=== PATIENT | male | born 1955 | race African-American/Black ===

== ENCOUNTER 2016-04-28 14:17 | Outpatient (CLI) | payer OTHER ==
[2015-10-01 10:43] VITALS: BP 102/97
== END 2016-04-28 14:18 ==
LOC: LAB 14:17
PROVIDERS: ATTEND Family Medicine
DX: E11.9 Type 2 diabetes mellitus without complications (principal)
CPT/HCPCS: 36415; 83036

== ENCOUNTER 2016-05-01 14:11 | Outpatient (CLI) | payer OTHER ==
[2015-10-01 10:43] VITALS: BP 102/97
== END 2016-05-01 14:12 ==
LOC: POD 14:11
PROVIDERS: ATTEND Podiatrist
DX: B35.1 Tinea unguium (principal); M79.674 Pain in right toe(s); M79.675 Pain in left toe(s)
CPT/HCPCS: 11721; 99213

== ENCOUNTER 2016-07-17 13:35 | Outpatient (CLI) | payer OTHER ==
[2015-10-01 10:43] VITALS: BP 102/97
== END 2016-07-17 13:36 ==
LOC: POD 13:35
PROVIDERS: ATTEND Podiatrist
DX: B35.1 Tinea unguium (principal); M79.674 Pain in right toe(s); M79.675 Pain in left toe(s)
CPT/HCPCS: 11721; G0463

== ENCOUNTER 2016-09-01 09:10 | Outpatient (CLI) | payer OTHER ==
[2015-10-01 10:43] VITALS: BP 102/97
[2016-09-01 10:09] LABS: eGFR (African) > 60; eGFR (Non-African) > 60
== END 2016-09-01 09:11 ==
LOC: LAB 09:10
PROVIDERS: ATTEND Family Medicine
DX: E11.9 Type 2 diabetes mellitus without complications (principal)
CPT/HCPCS: 36415; 80053; 80061; 83036

== ENCOUNTER 2016-12-08 08:49 | Outpatient (CLI) | payer OTHER ==
[2015-10-01 10:43] VITALS: BP 102/97
== END 2016-12-08 08:50 ==
LOC: LAB 08:49
PROVIDERS: ATTEND Family Medicine
DX: E11.9 Type 2 diabetes mellitus without complications (principal)
CPT/HCPCS: 36415; 83036

== ENCOUNTER 2016-12-11 13:39 | Outpatient (CLI) | payer OTHER ==
[2015-10-01 10:43] VITALS: BP 102/97
== END 2016-12-11 13:40 ==
LOC: POD 13:39
PROVIDERS: ATTEND Podiatrist
DX: E11.42 Type 2 diabetes mellitus with diabetic polyneuropathy (principal); B35.1 Tinea unguium; M79.674 Pain in right toe(s); M79.675 Pain in left toe(s)
CPT/HCPCS: 11721; G0463

== ENCOUNTER 2017-04-16 12:25 | Outpatient (CLI) | payer OTHER ==
[2015-10-01 10:43] VITALS: BP 102/97
== END 2017-04-16 12:26 ==
LOC: POD 12:25
PROVIDERS: ATTEND Podiatrist
DX: E11.42 Type 2 diabetes mellitus with diabetic polyneuropathy (principal); B35.1 Tinea unguium; M79.674 Pain in right toe(s); M79.675 Pain in left toe(s)
CPT/HCPCS: 11721; G0463

== ENCOUNTER 2017-05-13 08:47 | Outpatient (CLI) | payer OTHER ==
[2015-10-01 10:43] VITALS: BP 102/97
--- NOTE | 2017-05-13 09:24 | Diagnostic Imaging Report ---
NERY HOFFMAN [facility] [address] [facility] [address] [place] [address]. [id number] Report Submission Date: May 13, 2017 9:21:16 AM SNORKELLING INSTRUCTOR Patient Study Name: NEHA GUERRA Date: May 13, 2017 9:03:42 AM SNORKELLING INSTRUCTOR Modality Type: DX Gender: M Description: SPINE : 57 Institution: [facility] Physician: NERY HOFFMAN 3 views of the lumbar spine History: L-SPINE, LEFT SIDED LOW BACK PAIN FOR ABOUT A MONTH, NO KNOWN INJURY No similar comparison studies. No evidence of acute fracture or dislocation of the lumbar spine Multilevel degenerative changes are seen, most pronounced at L5-S1. Facet arthropathy is seen from L4 to S1. There is minimal loss of height of L5 vertebral body. Intervertebral disc space decreased at L4 to S1, worst at L5- S1. Osteophytes are present Impression: 1. No evidence of acute fracture or dislocation. Multilevel degenerative changes 2. Minimal loss of height of L5 vertebral body. Narrowed intervertebral disc space with facet arthropathy from L4 to S1, findings are most severe at L5-S1. Electronically signed on May 13, 2017 9:21:16 AM SNORKELLING INSTRUCTOR by: Angelita DOMINGUEZ
== END 2017-05-13 08:50 ==
LOC: LAB 08:47
PROVIDERS: ATTEND Family Medicine
DX: M54.42 Lumbago with sciatica, left side (principal); E11.9 Type 2 diabetes mellitus without complications
CPT/HCPCS: 36415; 72100; 82043; 83036

== ENCOUNTER 2017-06-08 12:11 | Outpatient (CLI) | payer OTHER ==
[2015-10-01 10:43] VITALS: BP 102/97
--- NOTE | 2017-06-14 15:00 | HISTORY AND PHYSICAL REPORT ---
REFERRING PHYSICIAN: Dr. Sindi Dwyer Dear. Dr. Dwyer: HISTORY OF PRESENT ILLNESS: I had the opportunity of seeing Aleks Hernandes today as an outpatient at [facility]. Mr. Hernandes is a very nice 62-year-old white male with a 2 to 3 month history of left-sided low back pain radiating across the back and lateral hip pain, posterior lateral thigh. He denies accident or injury. He says the pain is worse with walking, lying down, sitting, twisting, and getting up out of a chair. He has start-up symptoms. He says that lying down can make it better but it really has not been better. He has an x-ray image but no recent studies. He has not realized physical therapy, chiropractic manipulation, TENS unit, acupuncture, or massage therapy. He feels like his left leg is weaker than his right. He denies right-sided leg pain. He denies symptoms of neurogenic claudication. He denies incontinence of bowel or bladder. He rates the pain as severe as 9 over 10 on the visual analog scale and never better than 4 over 10 on the visual analog scale and getting worse. He has diabetes mellitus type 2. His blood sugar today is 149. PAST MEDICAL HISTORY: 1. History of vision problems. 2. Nose or sinus problems. 3. Asthma or bronchitis. 4. Insulin-dependent diabetes. PAST SURGICAL HISTORY: 1. Right total hip replacement in 2006. 2. Lung biopsy. CURRENT DAILY MEDICATIONS: 1. Metformin 500 mg b.i.d. 2. Glipizide 10 mg b.i.d. 3. Flomax 0.4 mg daily. 4. Relafen 750 mg b.i.d. p.r.n. 5. Multivitamin daily. 6. Insulin per sliding scale daily. ALLERGIES: He has no known drug allergies. SOCIAL HISTORY: He is a current [id number]-day smoker. Drinks alcohol approximately 10 times per year. Denies recreational drugs. He is . He has no children. He completed the 12th grade. He is not currently employed. His previous occupation was a social worker school/assembly. He is disabled for an unknown reason. FAMILY HISTORY: Father with cancer. Sister with cancer. Mother with heart disease. REVIEW OF SYSTEMS: In the last month or so, he reports a sinus infection, cough or cold. Pain is worsened with lying down, standing, bending, sitting, walking, twisting, getting up from a chair. Nothing improves his pain. PHYSICAL EXAMINATION: Vital Signs: BP: 130/78, P: 60, R: 20, oxygen saturation is 98% on room air. General: The patient is well nourished, well developed, and in no apparent distress. Awake, alert, and oriented. HEENT: Pupils are equal, round, and reactive to light and accommodation. Extraocular movements intact. No facial droop. Neck: There is full range of motion of the cervical spine. No evidence of adenopathy. Thyroid is nontender, not enlarged. Carotids are without bruits. Chest: Clear to auscultation bilaterally. Normal chest excursion. Heart: Regular rate and rhythm without murmur. Abdomen: Benign. Normoactive bowel sounds. Motor/sensory: Intact in the upper and lower extremities. Moves all extremities freely. Extremities: Positive straight leg raise on the left. Negative straight leg raise on the right. Strength is 5/5 and equal in his lower extremities. Dorsiflexion and plantar flexion of the feet are intact. There is negative PANCHITO. Negative femoral nerve stretch. ASSESSMENT: 1. Left-sided low back pain with sciatica. 2. Left radiculitis without MRI imaging. PLAN: At this point, we will need to get him approved for treatment with a lumbar epidural steroid injection. I am going to start him on tramadol and Lyrica and follow him up next month. He is in agreement and we will get this gentleman taken care of in the near future. Dr. Dwyer, thank you very much for allowing us to take part in the care of this nice gentleman. I appreciate the opportunity to take part in the care of your patients. cc: Dr. Sindi DOMINGUEZ
== END 2017-06-08 12:12 ==
LOC: OUT 12:11
PROVIDERS: ATTEND Anesthesiology Pain Medicine
DX: M54.40 Lumbago with sciatica, unspecified side (principal); M54.16 Radiculopathy, lumbar region
CPT/HCPCS: 99214; G0463

== ENCOUNTER 2017-06-11 13:08 | Outpatient (CLI) | payer OTHER ==
[2015-10-01 10:43] VITALS: BP 102/97
== END 2017-06-11 13:10 ==
LOC: POD 13:08
PROVIDERS: ATTEND Podiatrist
DX: E11.42 Type 2 diabetes mellitus with diabetic polyneuropathy (principal); B35.1 Tinea unguium; M79.674 Pain in right toe(s); M79.675 Pain in left toe(s)
CPT/HCPCS: 11721; G0463

== ENCOUNTER 2017-07-06 09:27 | Outpatient (CLI) | payer OTHER ==
[2015-10-01 10:43] VITALS: BP 102/97
--- NOTE | 2017-07-08 09:06 | LESI WITH FLUORO ---
SUBJECTIVE: Mr. Hernandes follows up with me today for low back pain and left lower extremity radicular pain for a lumbar epidural steroid injection under fluoroscopy for radiculitis. His MRI is significant for small disc protrusions at L1-L2, L2-L3 , L3-L4, L4-L5, and L5-S1 with a slight anterolisthesis at L4-L5 and a great deal of posterior facet hypertrophy and osteophytes at each level particularly at L1-L2 through L4-L5. There is notable lateral recess stenosis at L4-L5 as well, and otherwise, mild stenotic changes at L2-L3 and L3-L4. L5-S1 appears fairly well preserved. 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 His MRI report done at [facility] does not address his spondylolytic changes or notable lateral recess stenosis. OPERATIVE PROCEDURE: Left L4-L5 epidural steroid injection with fluoroscopic guidance. DESCRIPTION OF PROCEDURE: The risks and benefits were discussed with the patient including the risk of infection, bleeding, nerve injury, and headache, as well as the risks of steroid exposure causing hyperglycemia, hypertension, osteoporosis, or increased infectious risks. The patient understood these risks and agreed to proceed. Consent was obtained prior to the procedure. The patient was placed in the prone position on the fluoroscopy table with a pillow underneath the abdomen to afford anterior flexion of the lumbar spine. The low back was cleaned and a sterile drape was applied. An 18-gauge thin wall Tuohy epidural needle was advanced with normal saline loss of resistance technique and direct fluoroscopic guidance with a left paramedian approach at the L4-L5 level. On obtaining loss of resistance to normal saline, it was verified that there was no aspiration of CSF or blood. Furthermore, the needle tip location was verified with lateral and AP fluoroscopic views. Omnipaque 240 myelogram dye were injected through the epidural needle. The distribution of the dye was noted to be within the desired distribution within the lumbar epidural space. The medication was injected into the epidural space. The stylet was replaced in the needle and the needle was removed from the back. The patient tolerated the procedure well. The back was cleaned and a bandage was applied over the injection site. The patient was monitored for 20 minutes following the procedure. during this time the vital signs remained stable and the patient experienced no adverse sequelae. The patient was discharged in good condition. ASSESSMENT: 1. Lumbar stenosis most pronounced at L4-L5 and otherwise, L2-L3 and L3-L4. 2. Multi-level lumbar spondylosis. PLAN: Left L4-L5 epidural steroid injection with fluoroscopic guidance today. FOLLOWUP: We will follow this nice gentleman up sometime next month. Return to clinic if problems develop or worsen. cc: Dr. Sindi DOMINGUEZ
== END 2017-07-06 09:30 ==
LOC: OUT 09:27
PROVIDERS: ATTEND Anesthesiology Pain Medicine
DX: M47.896 Other spondylosis, lumbar region (principal); M48.07 Spinal stenosis, lumbosacral region
CPT/HCPCS: J3301; Q9966; 62323; 99213; G0463

== ENCOUNTER 2017-08-03 10:30 | Outpatient (CLI) | payer OTHER ==
[2015-10-01 10:43] VITALS: BP 102/97
[2017-08-03] MEDS ORDERED: SALINE FLUSH 10 ML DISP.SYRIN IVF ONE (11:00)
[2017-08-03] MEDS ORDERED: Lidocaine 1% 5ml(IM or SUTURE)(PAIN CLINIC) ONE (11:00)
[2017-08-03] MEDS ORDERED: TRIAMCINOLONE ACETONID 40MG/ML VIAL ONE (11:00)
--- NOTE | 2017-08-04 09:09 | LESI WITH FLUORO ---
SUBJECTIVE: I had the opportunity of following up with Aleks Hernandes. This is a delightful 62-year-old male with a history of back pain and neurogenic claudication and MRI findings consistent with lumbar spinal stenosis and lumbar spondylosis. He said he got a great deal of improvement, almost 100% relief, following lumbar epidural steroid injection last month. He said he is getting some recurrent symptoms. He was at a prolonged graduation sitting on benches. He said the symptoms are returning in his back and he is here today for possible repeat injection. I have discussed the findings of both stenosis and spondylosis today and that I could repeat a lumbar epidural steroid injection and have him follow up with me on an as needed basis. He is in agreement today. I am going to proceed with a left L4-L5 epidural steroid injection under fluoroscopic guidance. OPERATIVE PROCEDURE: Left L4-L5 epidural steroid injection with fluoroscopic guidance. DESCRIPTION OF PROCEDURE: The risks and benefits were discussed with the patient including the risk of infection, bleeding, nerve injury, and headache, as well as the risks of steroid exposure causing hyperglycemia, hypertension, osteoporosis, or increased infectious risks. The patient understood these risks and agreed to proceed. Consent was obtained prior to the procedure. The patient was placed in the prone position on the fluoroscopy table with a pillow underneath the abdomen to afford anterior flexion of the lumbar spine. The low back was cleaned with and a sterile drape was applied. An 18-gauge thin wall Tuohy epidural needle was advanced with normal saline loss of resistance technique and direct fluoroscopic guidance with a left paramedian approach at the L4-L5 level. On obtaining loss of resistance to normal saline, it was verified that there was no aspiration of CSF or blood. Furthermore, the needle tip location was verified with lateral and AP fluoroscopic views. Omnipaque 240 myelogram dye was injected through the epidural needle. The distribution of the dye was noted to be within the desired distribution within the lumbar epidural space. The medication was injected into the epidural space. The stylet was replaced in the needle and the needle was removed from the back. The patient tolerated the procedure well. The back was cleaned and a bandage was applied over the injection site. The patient was monitored for 20 minutes following the procedure. during this time the vital signs remained stable and the patient experienced no adverse sequelae. The patient was discharged in good condition. ASSESSMENT: Lumbar spinal stenosis with neurogenic claudication. PLAN: Left L4-L5 epidural steroid injection today. FOLLOWUP: Return to clinic if problems develop or worsen. cc: Dr. Sindi DOMINGUEZ
== END 2017-08-03 10:32 ==
LOC: OUT 10:30
PROVIDERS: ATTEND Anesthesiology Pain Medicine
DX: M48.062 Spinal stenosis, lumbar region with neurogenic claudication (principal)
CPT/HCPCS: 62323; 99213; G0463; J3301; A4550; Q9966

== ENCOUNTER 2017-10-05 12:32 | Outpatient (CLI) | payer OTHER ==
[2015-10-01 10:43] VITALS: BP 102/97
== END 2017-10-05 12:37 ==
LOC: POD 12:32
PROVIDERS: ATTEND Podiatrist
DX: E11.42 Type 2 diabetes mellitus with diabetic polyneuropathy (principal); B35.1 Tinea unguium; M79.674 Pain in right toe(s); M79.675 Pain in left toe(s)
CPT/HCPCS: 11721; G0463

== ENCOUNTER 2018-06-23 21:04 | Emergency (ER) | payer OTHER ==
[2018-06-23 21:42] VITALS: BP 132/87
--- NOTE | 2018-06-23 22:27 | ED Physician Documentation ---
Abdominal Pain - HISTORIAN Historian: patient, spouse - HPI Stated Complaint: Mild discomfort to abdomen Chief Complaint: Abdominal Pain Onset: hours Timing: better Context: denies: out of country travel, bad food, recent trauma Severity: mild Quality: dull Associated Symptoms: none Exacerbated by: nothing Relieved by: nothing Further Comments: yes (63 year old male patient presents with complaint of mild abdominal pain. Patient is concerned his hernia might ruptures like his brother's did. Patient rates pain 2-3/10. Denies nausea, vomiting, diarrhea or fever. Complains of dull discomfort, states he occassionally has abdominal discomfort after he eats.) - ROS CONST: no problems GI/: none CVS/RESP: none EYES/ENT: none MS/SKIN/LYMPH: none NEURO/PSYCH: none - SOCIAL HX Smoking History: cigarettes - FAMILY HX Family History: denies: none - PAST HX Past History: other (abdominal hernia x 2) Other History: diabetes Type 2 Surgeries/Procedures: other (right hip replacement) Home Medications: Ambulatory Orders Medication Instructions Recorded gliPIZIDE [Glucotrol] 10 mg PO BID tablet 10/01/15 Allergies/Adverse Reactions: Allergies Allergy/AdvReac Type Severity Reaction Status Date / Time No Known Drug Allergies Allergy Verified 09/28/15 18:27 - VITAL SIGNS Vital Signs: Vital Signs Temp Pulse Resp BP Pulse Ox 98.5 F 91 H 18 132/87 95 06/23/18 21:05 06/23/18 21:05 06/23/18 21:05 06/23/18 21:05 06/23/18 21:05 - REVIEWED ASSESSMENTS Nursing Assessment Reviewed: Yes Vitals Reviewed: Yes Progress - Progress Progress: Reassurance given and questions answered. Patient has no complaints of severe pain, vomiting, diarrhea or nausea. Recommended surgical consult for evaluation of hernias. Patient states he was seen by a surgeon 5 years ago who recommended gastric bypass and no repair of abdominal hernia. Recommended patient discuss further with his PCP and/or see a surgeon for consult. Reviewed signs and symptoms of strangulation, obstruction and perforation. ED Results Lab/Radiology - Radiology Radiology Impressions: Clinical history abdominal pain. History of hernia surgery. Findings: Examination of the chest in single upright view demonstrates multiple old rib fractures. There is pleural reaction or pleural effusion blunting the costophrenic angles bilaterally. Cardiac silhouette is within normal limits. Degenerative changes are seen in the thoracic vertebrae. Examination of the abdomen in supine and upright views demonstrates degenerative changes in lumbar vertebrae and left hip. There is right total hip replacement with heterotopic ossification adjacent to the hip. Gas and stool are present in the colon. There is no obstruction or free air. Impression: 1. Blunting of the costophrenic angles consistent with pleural reaction or pleural effusion. 2. Old left rib fractures. 3. Thoracolumbar spondylosis and degenerative changes in the left hip. 4. Right hip replacement. 5. No obstruction or free air. Electronically signed on Jun 23, 2018 10:25:20 PM CDT by: Luis Alfredo Cottrell - Orders Orders: ED Orders Category Date Time Status ACUTE ABDOMINAL SERIES [ABD SERIES PA CHEST] [RAD] Stat Exams 06/23/18 Ordered Abdominal Pain Physical Exam - Physical Exam General Appearance: mild distress EENT: eye inspection normal, ELLI RESPIRATORY: no resp distress, chest non-tender, breath sounds normal CVS: reg rate & rhythm, heart sounds normal, equal pulses, no murmur, no gallop, PMI nml, no JVD, no friction rub, 24 ABDOMEN: soft, no organomegaly, normal bowel sounds, no abdominal bruit, no distension, other (protuberant abdomen; ventral and LUQ hernia noted when patient lies back on stretcher and sits up. Umbilical hernia noted. All self reduce. No complaint of pain with palpation. ) SKIN: normal color, warm/dry, NR, INT, PAL, DR EXTREMITIES: non-tender, normal range of motion, no evidence of injury, no edema, J, HOUSEMAN NEURO: oriented X3, CN's nml as tested, motor nml, sensation nml Vital Signs: Vital Signs Temp Pulse Resp BP Pulse Ox 98.5 F 91 H 18 132/87 95 06/23/18 21:05 06/23/18 21:05 06/23/18 21:05 06/23/18 21:05 06/23/18 21:05 Discharge Clincal Impression: Hernia, Abdominal discomfort Referrals: Sindi Dwyer MD [Primary Care Provider] - 2 Days Additional Instructions: Follow up with surgeon for further evaluation of hernia. Return to ER if hernia protrudes outside the abdominal muscles and does not reduce on it's own. Return to the emergency department or call your doctor, if you are having severe abdominal pain, fever >101.0, or if there is blood in the vomit or diarrhea, or you cannot keep down liquids or solid food. Condition: Stable Disposition: 01 HOME, SELF-CARE Decision to Admit: NO Decision Time: 22:34
--- NOTE | 2018-06-23 22:44 | Diagnostic Imaging Report ---
ADRIANE AGUIAR (DEAN OF GRADUATE STUDIES) - ER [facility] [address] [facility].[address] [address] Report Submission Date: Jun 23, 2018 10:25:20 PM CDT Patient Study Name: NEHA GUERRA Date: Jun 23, 2018 9:46:00 PM CDT Modality Type: DX Gender: M Description: ABD SERIES PA CHEST : 57 Institution: [facility] Physician: ADRIANE AGUIAR (CATHERINE) - ER Obstructive series with chest x-ray Clinical history abdominal pain. History of hernia surgery. Findings: Examination of the chest in single upright view demonstrates multiple old rib fractures. There is pleural reaction or pleural effusion blunting the costophrenic angles bilaterally. Cardiac silhouette is within normal limits. Degenerative changes are seen in the thoracic vertebrae. Examination of the abdomen in supine and upright views demonstrates degenerative changes in lumbar vertebrae and left hip. There is right total hip replacement with heterotopic ossification adjacent to the hip. Gas and stool are present in the colon. There is no obstruction or free air. Impression: 1. Blunting of the costophrenic angles consistent with pleural reaction or pleural effusion. 2. Old left rib fractures. 3. Thoracolumbar spondylosis and degenerative changes in the left hip. 4. Right hip replacement. 5. No obstruction or free air. Electronically signed on Jun 23, 2018 10:25:20 PM CDT by: Luis Alfredo DOMINGUEZ
== END 2018-06-23 22:42 | disposition home or self-care (01) ==
LOC: ED 21:04
DX: K43.9 Ventral hernia without obstruction or gangrene (principal); K42.9 Umbilical hernia without obstruction or gangrene; R10.9 Unspecified abdominal pain
CPT/HCPCS: 74022; 99282; 99283

== ENCOUNTER 2018-11-03 11:11 | Outpatient (CLI) | payer OTHER ==
--- NOTE | 2018-11-03 15:53 | Diagnostic Imaging Report ---
GAVIN VAZQUEZ [facility] [address] [facility].[address] [address] Report Submission Date: Nov 03, 2018 2:19:27 PM CDT Patient Study Name: NEHA GUERRA Date: Nov 03, 2018 12:40:09 PM CDT Modality Type: DX Gender: M Description: PELVIS AP 1 OR 2 VIEWS : 57 Institution: [facility] Physician: GAVIN VAZQUEZ Exam: AP pelvis. History: Low back pain. No previous studies are available for comparison. An orthopedic device replaces the right hip joint. Narrowing, sclerosis and spurring at the left hip joint is noted. Exuberant callus formation in the proximal right femur is noted. No signs of acute fracture or dislocation is seen. Impression: An orthopedic device replaces the right hip joint. Exuberant surrounding callus formation at the right hip joint is noted. Arthritic changes noted at the left hip joint. Electronically signed on Nov 03, 2018 2:19:27 PM CDT by: Jason DOMINGUEZ
--- NOTE | 2018-11-03 15:55 | Diagnostic Imaging Report ---
GAVIN VAZQUEZ [facility] [address] [facility].[address] [address] Report Submission Date: Nov 03, 2018 2:20:35 PM CDT Patient Study Name: NEHA GUERRA Date: Nov 03, 2018 12:40:51 PM CDT Modality Type: DX Gender: M Description: L SPINE 4 VIEWS : 57 Institution: [facility] Physician: GAVIN VAZQUEZ Exam: Lumbar spine. History: Low back pain. AP, lateral, both oblique views and L5-S1 spot view of the lumbar spine are submitted. Partial sacralization of the 5th lumbar segment is noted. The vertebral body heights are adequately maintained. Disc space narrowing with endplate sclerosis and spurring at L1-2 and L5-S1 levels are noted. No spondylolisthesis or spondylolysis is identified. Impression: Partial sacralization of the 5th lumbar segment. Degenerative disc disease at L1-2 and L5-S1 levels. Electronically signed on Nov 03, 2018 2:20:35 PM CDT by: Jason DOMINGUEZ
--- NOTE | 2018-11-08 16:00 | CONSULTATION REPORT ---
CHIEF COMPLAINT: Low back pain. HISTORY OF PRESENT ILLNESS: Mr. Hernandes is a 63-year-old -[place] male patient here for initial evaluation for his low back pain. 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 His pain has been progressive in nature over time. He does note that after his right total hip arthroplasty in 2008, his back pain significantly worsened. Three to four years ago he started seeing Dr. Alexander here in [place]. He did have imaging done with Dr. Alexander and subsequently had two epidural steroid injections. He tells me today that the first injection was very helpful, however, the second was not so much. His pain is aggravated by walking and he has difficulties going from a sitting to standing position. Alleviating factors include [id number] NSAIDs including Tylenol and ibuprofen and recently he was prescribed tramadol, which does help his pain symptoms. Also resting helps. He has participated in physical therapy in the past with no significant improvement. He has never seen a chiropractor and he has not tried any topicals or heat or ice. The patient describes his low back pain as intermittent aching, sharp and causes a locking sensation at times when he goes from a sitting to standing position. He does have intermittent radiation around to the left hip, that occasionally travels down the left lateral thigh to above the knee. He denies any numbness, tingling. He denies any urinary or bowel incontinence. He denies any saddle anesthesia. He has not had any recent imaging in the last year. PAST MEDICAL HISTORY: The patient has osteoarthritis, asthma, back pain, type 2 diabetes with his last hemoglobin A1c being on 10/21 with the result of 7.3%. He has an umbilical hernia, hyperlipidemia, joint pain in the knees and hips. A history of pneumonia, a history of stomach ulcers diagnosed in 1998, BPH. PAST SURGICAL HISTORY: Includes a right total hip arthroplasty in approximately 2008, left lung biopsy and a colonoscopy in 2006. FAMILY HISTORY: Includes cancer with his father, sibling, heart attack with mother and obesity with sibling. SOCIAL HISTORY: Marital status is single. Occupation is disabled. Tobacco use is current one-half pack per day for approximately 40 years. Alcohol is current two drinks per month. Recreational drug use is denied. MEDICATIONS: Include glipizide 10 mg b.i.d., metformin 500 mg b.i.d., atorvastatin 10 mg q.h.s., Flomax 0.4 mg daily, tramadol 50 mg up to four times per day, however, 60 tabs have been prescribed per month, omeprazole 20 mg daily, ProAir HFA 90 mcg inhaler two puffs 4-6h p.r.n. and Relafen 750 mg b.i.d. OBJECTIVE: General: This is a morbidly obese -[place] male patient presenting in [facility]. Vital Signs: He is 5 feet 8 inches tall. Weighs 384 pounds. Temperature is 97.6, pulse is 92, respiratory rate is 20, blood pressure is 128/79 with SaO2 of 94% on room air. Psych: He is alert and oriented x3. He is calm, pleasant and cooperative. He is accompanied by his girlfriend today. HEENT: He is normocephalic and atraumatic. Sclerae clear. Cardiovascular: Normal S1, S2 with a regular rate and rhythm, no murmurs, gallops or rubs. Pulmonary: Nonlabored respirations at rest. He is clear to auscultation throughout, diminished posteriorly in the bases. GI: Has an obese abdomen. Bowel sounds present in all four quadrants. Nontender to palpation. Unable to assess for organomegaly related to obesity. Musculoskeletal: The patient rises slowly and does have just slight difficulty getting on to the exam table. He has tenderness to palpation at the bilateral L3-L4, L4-L5 and L5-S1 facet joint levels. He also has lumbar paraspinal tenderness in the lower lumbar area. The patient is able to achieve trunk flexion with his fingertips approximately 12 inches from the floor. He has full extension. Extension does induce low back pain. Bilateral West's is positive for bilateral low back pain without radiation. Straight leg raise on the right he achieves approximately 20 degrees with low back pain and on the left achieves about 15 degrees with low back pain. On lower extremity strength testing bilateral hip flexion, knee extension, knee flexion, dorsiflexion and plantar flexion are all grade 5/5. Station is normal. Gait is antalgic. Neurologic: Cranial nerves II through XII are grossly intact today. Patellar reflexes are 2+. Sensation to light touch is intact bilateral lower extremities in all dermatomes. ASSESSMENT: 1. Chronic low back pain. 2. Lumbar radiculitis most likely related to facet arthrosis. 3. Morbid obesity. 4. Sleep disturbance. PLAN: 1. Today I have ordered x-rays of the lumbar spine to include flexion and extension. 2. I have also ordered an x-ray of AP, pelvis. 3. I have ordered an MRI of the lumbar spine without contrast. The patient is to bring a disc to his followup appointment. 4. I am referring the patient to sleep lab for a sleep study related to sleep disturbance, morbid obesity, snoring. 5. I am also referring him to our bariatric clinic in [place], [place] for evaluation for possible laparoscopic gastric sleeve. 6. I did discuss his low back pain would possibly be significantly improved with weight loss, not only that, it would impact his overall health status. 7. I prescribed Valium 10 mg one p.o. 30 minutes prior to the MRI, dispense #1 with no refills. This was called in to the [facility] in [place]. 8. The patient is to follow up when he has all the above done to discuss a plan for intervention. The patient did verbalize understanding and agrees with the current treatment plan. Gisselle Serrano NP Nurse Practitioner /[employer] [id number] jrd cc: Sindi Dwyer MD MTDD
== END 2018-11-03 12:35 ==
LOC: OUT 11:11
PROVIDERS: ATTEND Nurse Practitioner Adult Health
DX: M54.16 Radiculopathy, lumbar region (principal); E66.01 Morbid (severe) obesity due to excess calories; G47.9 Sleep disorder, unspecified
CPT/HCPCS: 72170; 99202

== ENCOUNTER 2019-02-20 08:47 | Outpatient (CLI) | payer OTHER | END 2019-02-20 08:52 | LOC: LAB 08:47 | PROVIDERS: ATTEND Family Medicine | DX: E11.9 Type 2 diabetes mellitus without complications (principal) | CPT/HCPCS: 36415; 82043; 83036 ==